=== PATIENT | female | born 1950 | race Caucasian/White ===

== ENCOUNTER 2017-05-18 17:32 | Observation (INO) | payer MEDICARE, OTHER ==
[~2017-05-18 17:32] MED LIST: ISOVUE-370 76%-LOCM 1 ML ONE
[2017-05-18 18:06] LABS: #Eosinphils 0.1 thou/uL (0.0-0.7); #Lymphocytes 2.6 thou/uL (1.20-3.40); #Monocytes 0.3 thou/uL (0.11-0.59); #Neutrophils 2.3 thou/uL (1.40-6.50); %Basophils 0.8 % (0.0-1.0); %Eosinophils 1.7 % (0.0-10.0); %Lymphocytes 48.3 % (21.0-51.0); %Monocytes 6.3 % (0.0-10.0); %Neutrophils 42.9 % (42.0-75.0); Hemoglobin 12.8 g/dL (12.0-16.0); Mean Corpuscular HGB CONC 33.7 g/dL (32.0-36.0); Mean Corpuscular Hemoglobin 30.5 pg (27.0-31.0); Mean Corpuscular Volume 90.5 fl (81.0-99.0); Mean Platelet Volume 7.1 fL (7.4-10.4); Platelet Count 252 thou/uL (130-400); RBC Distribution Width 13.3 % (11.5-14.5); Red Blood Cell (RBC) Count 4.19 mill/uL (4.20-5.40); White Blood Cell (WBC) Count 5.3 thou/uL (4.8-10.8)
[2017-05-18] MEDS ORDERED: Nitroglycerin 2% Ointment 1 INCH/1 GM Packet ONE (18:10)
[2017-05-18 18:26] LABS: ALT (SGPT) 14 U/L (8-55); AST (SGOT) 17 U/L (5-34); Albumin 4.7 g/dL (3.4-4.8); Alkaline Phosphatase 53 U/L (40-150); Anion Gap 15 mmol/L (10-20); BUN (Urea Nitrogen) 13 mg/dL (9.8-20.1); Bilirubin, Total 0.4 mg/dL (0.2-1.2); CK (CPK) 80 U/L (29-168); Calc. Creatinine Clearance 0 mL/min (70-130); Calcium 9.9 mg/dL (7.8-10.44); Carbon Dioxide 26 mmol/L (23-31); Chloride 102 mmol/L (98-107); Estimated GFR-MDRD 77; Globulin 2.9 g/dL (2.4-3.5); Glucose 108 mg/dL (80-115); Potassium 3.5 mmol/L (3.5-5.1); Protein, Total 7.6 g/dL (6.0-8.3); Sodium 139 mmol/L (136-145)
[2017-05-18 18:31] LABS: Troponin I Less than 0.010 ng/mL (< 0.028)
[2017-05-18 18:51] LABS: CKMB 1.1 ng/mL (0-6.6)
--- NOTE | 2017-05-18 19:07 | PDOC.FPRHP ---
- History of Present Illness Chief Complaint: Chest Pain History of Present Illness: 67 year old female with PMH HLD, Type II DM, Asthma, Chronic asthma and history of breast cancer that presents with a 40 minute episode of chest pain which started at approximately 5:30 pm while in the car on the way to dinner. She described the pain as stabbing in nature. It started in right ear, and then she noted it in the substernal region. Soon thereafter the pain radiated to her left jaw. Patient has not experienced symptoms like this previously. She did endorse difficulty with taking a deep breath in secondary to pain. It is worse with coughing. She has a history of chronic COPD and notes that around this time every year she seems to have a worsening cough. Her cough is non- productive. She sees Dr. Trivedi for HLD. She had a stress test done in 2006 which was negative and showed EF of 68%. The pain started to subside as she got to the ED, but completely resided after one inch nitro paste was placed. Patient was given four 81 mg aspirins in the ED. EKG was done which showed non- specific t-wave changes. Patient states that this current episode was different than what she has experienced with bronchitis and GERD in the past. Patient has had "choking" spells over the course of the last several months. She is being worked up by ENT. ED Course: Given aspirin 81 mg and nitro 1 inch paste in the ED. Elevated D-dimer of 0.89 in ED. Sent for CTA chest to rule out PE. - Allergies/Adverse Reactions Allergies Allergy/AdvReac Type Severity Reaction Status Date / Time ether [Ether] Allergy Unknown Verified 12/08/12 12:40 latex Allergy Unknown Verified 12/08/12 12:40 morphine Allergy Unknown Verified 12/08/12 12:40 venom-honey bee Allergy Verified 12/08/12 12:40 [bee venom (honey bee)] - Home Medications Medication Instructions Recorded Confirmed Type Montelukast Sodium [Singulair] 10 mg PO HS 08/14/12 05/18/17 History metFORMIN XR [Glucophage XR] 1,000 mg PO BID-WM 08/14/12 05/18/17 History Budesonide-Formoterol [Symbicort 1 puff INH BID PRN 12/08/12 05/18/17 History 160-4.5] Ciclesonide [Omnaris] 2 spray EA NARE DAILY PRN 12/08/12 05/18/17 History Dexlansoprazole [Dexilant] 60 mg PO TID PRN 12/08/12 05/18/17 History traMADol HCl [Tramadol HCl] 50 mg PO Q4H PRN 12/08/12 05/18/17 History Fluticasone Propionate [Flonase 2 spray EA NARE DAILY 05/18/17 05/18/17 History Nasal [place]] Pioglitazone HCl [Actos] 10 mg PO HS 05/18/17 05/18/17 History - History PMHx: Breast cancer (last chemo 12/18/2006, last radiation 02/2007), Type II DM , Arthritis, HLD, Asthma, Chronic bronchitis, ALISHA on CPAP PSHx: Left breast lumpectomy, cholecystecomy, hysterectomy FHx: Non-contributory Social: Drink socially 2x/month. Denies tobacco or drug use. Specialists: Pulmonology - Dr. Russo, Technology Manager - Dr. Trivedi, ENT - Kianna Calhoun - Vital signs BP: [125/70] HR: [70] RR: [18] Tmax: [98.3] Pox: [98]% on [RA] Wt: [82.40 kg] - Physical Exam Constitutional: NAD, awake, alert and oriented, well developed FMR H&P: Results - Labs Result Diagrams: 05/18/17 17:45 05/18/17 17:45 Lab results: WBC 5.3 thou/uL (4.8-10.8) 05/18/17 17:45 Hgb 12.8 g/dL (12.0-16.0) 05/18/17 17:45 Hct 37.9 % (36.0-47.0) 05/18/17 17:45 MCV 90.5 fl (81.0-99.0) 05/18/17 17:45 Plt Count 252 thou/uL (130-400) 05/18/17 17:45 Neutrophils % 42.9 % (42.0-75.0) 05/18/17 17:45 Sodium 139 mmol/L (136-145) 05/18/17 17:45 Potassium 3.5 mmol/L (3.5-5.1) 05/18/17 17:45 Chloride 102 mmol/L (98-107) 05/18/17 17:45 Carbon Dioxide 26 mmol/L (23-31) 05/18/17 17:45 BUN 13 mg/dL (9.8-20.1) 05/18/17 17:45 Creatinine 0.75 mg/dL (0.6-1.1) 05/18/17 17:45 Glucose 108 mg/dL (80-115) 05/18/17 17:45 Calcium 9.9 mg/dL (7.8-10.44) 05/18/17 17:45 Total Bilirubin 0.4 mg/dL (0.2-1.2) 05/18/17 17:45 AST 17 U/L (5-34) 05/18/17 17:45 ALT 14 U/L (8-55) 05/18/17 17:45 Alkaline Phosphatase 53 U/L (40-150) 05/18/17 17:45 Creatine Kinase 80 U/L (29-168) 05/18/17 17:45 CK-MB (CK-2) 1.1 ng/mL (0-6.6) 05/18/17 17:45 Serum Total Protein 7.6 g/dL (6.0-8.3) 05/18/17 17:45 Albumin 4.7 g/dL (3.4-4.8) 05/18/17 17:45 FMR H&P: Upper Level - Pertinent history HPI: 67 F with PMHx T2DM, HLD, asthma, chronic bronchitis, GERD, arthritis, and breast cancer in remission who presents with acute onset chest pain. She reports that this evening around 530pm they were driving in the car to dinner and she started having stabbing pain in her R ear. She then began to have it in the center of her chest and then L jaw at which point she became concerned and had her drive her to the ER. Upon arrival, she noticed some lightening of the pain and then it completely disappeared with the application of the nitro patch. She is not having any pain at this time. She also has chronic bronchitis and felt short of breath during this episode but it was different from her bronchitis discomfort. - Pertinent findings PE: Gen: awake, alert, oriented x3 HEENT: atraumatic, normocephalic, conjunctiva non-injected PULM: CTAB, breathing unlabored, symmetrical chest expansion CV: RRR, no murmurs noted, pulses 1+ throughout ABD: Soft, mild TTP , no distention, bowel sounds normoactive BACK: No CVAT EXT: No cyanosis or edema NEURO: CN grossly intact, motor strength 5/5 in all extremities, sensation grossly intact SKIN: No rash or lesions Pertinent labs: WBC 5.3, Hgb 12.8, Hct 37.9,Plt 252, D dimer 0.89, Na 139, K 3.5, Cl 102, CO2 26 , BUN 13, Cr 0.75, Glu 108, Trop < 0.01, CKMP 1.1 CXR: Mild cardiomegaly without evidence of cardiac decompensation. Interval removal of the R chest wall port. 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 Atypical chest pain: Asymptomatic at this time. Not associated with exertion and did not have pressure type pain/diaphoresis/radiation down arm. Non- reproducible with palpation. Relieved with nitro. Will check FLP, TSH, Mg, Phos and trend troponins. Will plan for cardiolite stress test in AM as HEART score is 5. Nitro patch in place. Will repeat EKG if chest pain recurs. DDX includes ischemic chest pain, MSK pain, gastritis, PUD, esophageal spasm, laryngeal spasm. NPO at [place] for stress 2. T2DM: Home metformin and actos. ACHS accuchecks. Mild SSI. Will check a1c 3. HLD: FLP in a.m. 4. GERD/Hiatal hernia: May be contributing to chest pain. Continue home dexilant 5. Chronic bronchitis/Asthma: Home singulair and PRN albuterol PPX: SCDs, ambulatory, home dexilant Dispo: Tele obs for likely less than 2 midnights I, Ninoska Hale, have evaluated this patient and agree with findings/plan as outlined by internet cafe manager resident. Pertinent changes/additions are listed here.
--- NOTE | 2017-05-18 20:07 | RAD ---
AP VIEW OF THE CHEST: 05/18/17 INDICATION: Chest pain. COMPARISON: Prior examination dated 10/31/06. FINDINGS: There is mild cardiomegaly which has developed since the prior exam. Right sided chest wall port is n o longer in place. The lungs are clear. No pleural effusion is evident. Pulmonary vasculature is with in normal limits. IMPRESSION: 1. Mild cardiomegaly without evidence of cardiac decompensation. 2. Interval removal of the right chest wall port. POS: [facility]
--- NOTE | 2017-05-18 20:49 | CT ---
CTA OF THE THORAX UTILIZING IV CONTRAST AND 3D REFORMATTED IMAGING 05/18/17 INDICATION: Sudden onset of chest pain with referral into the left jaw. COMPARISON: CT of the thorax dated 10/21/12. FINDINGS: No central or segmental pulmonary embolus is present. There are patchy ground glass opacities within the posterior right lower lobe. One is slightly nodular in appearance on image 66 of series three kaylyn suring 6 mm . No pathologically enlarged lymph nodes are evident. Gallbladder is surgically absent. T here is mild thoracolumbar scoliosis. IMPRESSION: 1. No central or segmental pulmonary embolus. 2. Patchy nodular ground glass opacities in the right lower lobe may reflect changes of a bronch iolitis. Recommend correlation with the clinical exam and CT followup in 6 to 8 weeks to document res olution. POS: [facility]
--- NOTE | 2017-05-18 21:06 | PDOC.EVN ---
Attending Addendum - Attending Addendum Date/Time: 05/18/172057 I personally evaluated the patient and discussed the management with Dr. Boone/Geoffrey. I agree with the History, Examination, Assessment and Plan documented above with any addition or exceptions noted below. Patient with history of breast cancer, T2DM, HLD presenting with acute onset of stabbing type chest pain from R side radiating to substernal and L jaw. It improved spontaneously, and completely resolved after nitro admin in ER. Her exam is overall benign. Labs ok, and trops normal. She will be admitted to obs for enzyme and EKG rule out. Initial EKG normal. Stress test in AM and hopeful discharge with outpatient follow up if normal.
[2017-05-18 21:15] LABS: Hemoglobin A1c 6.2 % (4.0-6.0)
[2017-05-18 21:17] LABS: Magnesium 1.7 mg/dL (1.6-2.6); Phosphorus 3.4 mg/dL (2.3-4.7)
[2017-05-18 21:30] LABS: Troponin I Less than 0.010 ng/mL (< 0.028)
[2017-05-18 21:57] VITALS: BMI 33.3
[2017-05-18] MEDS ORDERED: Mometasone/Formoterol 120 PUFF INHALER INH PRN (22:17)
[2017-05-18] MEDS ORDERED: Dextrose 50% Abboject 50 ML SYRINGE SLOW IVP PRN (23:25)
[2017-05-18] MEDS ORDERED: Dextrose 5% in Water 1,000 ML IV PRN (23:25)
[2017-05-18] MEDS ORDERED: HumaLOG 300 UNITS/3 ML VIAL SC PRN (23:25)
[2017-05-19 00:26] LABS: Troponin I Less than 0.010 ng/mL (< 0.028)
[2017-05-19] MEDS: Acetaminophen 325 MG TAB PO PRN ×2 (01:16→08:29)
[2017-05-19 05:35] LABS: Cardiac Risk 3.2 (Less than 4.5)
--- NOTE | 2017-05-19 06:54 | PDOC.FM ---
- Subjective Subjective: Pt denied chest pain this am. Endorses a pertinent family hx of mom and dad both having chf also dad had multiple stents placed. She also endorses having chronic bronchitis. 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 - Objective MAR Reviewed: Yes Vital Signs & Weight: Vital Signs (12 hours) Temp Pulse Resp BP BP Pulse Ox 05/19/17 04:29 98.4 F 70 16 112/54 L 97 05/18/17 20:30 98.4 F 74 18 125/60 99 Weight Weight 82.735 kg I&O: 05/17/17 05/18/17 05/19/17 06:59 06:59 06:59 Intake Total 480 Output Total 850 Balance -370 Result Diagrams: 05/18/17 17:45 05/18/17 17:45 <Marcia King - Last Filed: 05/19/17 10:28> - Objective Vital Signs & Weight: Vital Signs (12 hours) Temp Pulse Resp BP BP Pulse Ox 05/19/17 08:11 98.4 F 79 16 117/58 L 99 05/19/17 08:00 98.4 F 79 16 05/19/17 04:29 98.4 F 70 16 112/54 L 97 Weight Weight 82.735 kg I&O: 05/18/17 05/19/17 05/20/17 06:59 06:59 06:59 Intake Total 480 Output Total 850 Balance -370 Result Diagrams: 05/18/17 17:45 05/18/17 17:45 <Jean Mittal - Last Filed: 05/19/17 11:17> Phys Exam - Physical Examination Constitutional: NAD HEENT: PERRLA, moist MMs, sclera anicteric Neck: no nodes, no JVD Respiratory: no wheezing, no rales, no rhonchi Cardiovascular: RRR, no significant murmur Gastrointestinal: soft, non-tender, no distention Musculoskeletal: no edema, pulses present Neurological: non-focal, normal sensation Psychiatric: normal affect, A&O x 3 Skin: no rash, normal turgor <Marcia King - Last Filed: 05/19/17 10:28> Dx/Plan (1) Atypical chest pain Code(s): R07.89 - OTHER CHEST PAIN Status: Acute (2) GERD (gastroesophageal reflux disease) Code(s): K21.9 - GASTRO-ESOPHAGEAL REFLUX DISEASE WITHOUT ESOPHAGITIS Status: Acute (3) HLD (hyperlipidemia) Code(s): E78.5 - HYPERLIPIDEMIA, UNSPECIFIED Status: Acute (4) Asthma Code(s): J45.909 - UNSPECIFIED ASTHMA, UNCOMPLICATED Status: Acute (5) Chronic bronchitis Code(s): J42 - UNSPECIFIED CHRONIC BRONCHITIS Status: Acute (6) Type 2 diabetes mellitus Status: Acute (7) ALISHA (obstructive sleep apnea) Code(s): G47.33 - OBSTRUCTIVE SLEEP APNEA (ADULT) (PEDIATRIC) Status: Acute (8) Family history of coronary artery disease Code(s): Z82.49 - FAMILY HX OF ISCHEM HEART DIS AND OTH DIS OF THE CIRC SYS Status: Acute (9) Family history of CHF (congestive heart failure) Code(s): Z82.49 - FAMILY HX OF ISCHEM HEART DIS AND OTH DIS OF THE CIRC SYS Status: Acute (10) Hx of breast cancer Code(s): Z85.3 - PERSONAL HISTORY OF MALIGNANT NEOPLASM OF BREAST Status: Acute - Plan Plan: A/P: 67 yo CF with PMHx T2DM, HLD presents with chest pain, admitted for atypical chest pain. 1. Atypical chest pain: -DDX includes ischemic chest pain, MSK pain, gastritis, PUD, esophageal spasm, and laryngeal spasm. -40 minute episode of chest pain, stabbing in nature, right ear, substernal and left jaw pain. Non-reproducible with palpation. -FLP, TSH, Mg, Phos and HgA1c pending. -Trend troponins. Will plan for cardiolite stress test. Nitro patch in place. Will repeat EKG if chest pain recurs. . -Consider GI cocktail if pain recurs. 2. T2DM: Home metformin and Actos. ACHS accuchecks. Mild SSI. hba1c 3. HLD: 5% ascvd risk based on lipid panel. We will start a moderate intensity statin ( atorvastatin 20mg daily). 4. GERD/Hiatal hernia: May be contributing to chest pain. Continue home dexilant. Consider GI cocktail if pain recurs. 5. Chronic bronchitis/Asthma: Home singulair and symbicort. PRN Duonebs PPX: SCDs, ambulatory, home dexilant Dispo: Tele obs; okay to dc if stress test normal. <Marcia King - Last Filed: 05/19/17 10:28> Attending Addendum - Attending Addendum Date/Time: 05/19/17 [id number] I personally evaluated the patient and discussed the management with Dr. Elissa Collado. I agree with the History, Examination, Assessment and Plan documented above with any addition or exceptions noted below. Patient has had no recurrence of chest pain. She will have nuclear stress testing this morning and will be discharged home later today if normal. Labs show well controlled DM and LDL near goal. <Jean Mittal - Last Filed: 05/19/17 11:17>
[2017-05-19] MEDS ORDERED: metFORMIN XR 500 MG TAB PO SCH (08:00)
[2017-05-19] MEDS ORDERED: Fluticasone Propionate Nasal Spray 16 gm Bottle NASAL SCH (09:00)
[2017-05-19] MEDS ORDERED: Fluticasone Propionate Nasal Spray 16 gm Bottle NASAL PRN (09:00)
[2017-05-19] MEDS ORDERED: Regadenoson 0.4 MG/5 ML SYRINGE ONE (10:33)
[2017-05-19 12:22] VITALS: BP 134/60; TEMP 98.6
--- NOTE | 2017-05-19 13:09 | NM ---
NUCLEAR MEDICINE CARDIAC MYOCARDIAL PERFUSION SPECT EJECTION FRACTION STUDY WALL MOTION CINE: DATE: 05/19/17. HISTORY: A 67-year-old female with diabetes mellitus and dyslipidemia who presents with acute chest pain. TECHNIQUE: Number of days: one. Rest study: Tc99m sestamibi (Cardiolite) dose: 11.0 mCi. Pharmacologic stress: Lexiscan dose: 0.4 mg. Stress study: Tc99m sestamibi (Cardiolite) dose: 30.0 mCi. FINDINGS: CARDIAC (MYOCARDIAL PERFUSION) SPECT Distribution of sestamibi is homogeneous throughout the left ventricle, with no fixed or reversible m yocardial perfusion defects. EJECTION FRACTION STUDY EF = 60% WALL MOTION CINE The left ventricular wall motion is normal. There is normal systolic wall thickening. IMPRESSION: Normal. florentin[] POS: [facility]
[2017-05-19] MEDS ORDERED: Atorvastatin Calcium 10 MG TAB PO SCH (21:00)
[2017-05-19] MEDS ORDERED: Montelukast Sodium 10 mg Tablet PO SCH (21:00)
[2017-05-19] MEDS ORDERED: Pioglitazone HCl 15 MG TAB PO SCH (21:00)
--- NOTE | 2017-05-23 15:02 | EKG ---
Test Reason : Blood Pressure : / mmHG Vent. Rate : 072 BPM Atrial Rate : 072 BPM P-R Int : 138 ms QRS Dur : 108 ms QT Int : 420 ms P-R-T Axes : 046 -05 002 degrees QTc Int : 459 ms Normal sinus rhythm Incomplete right bundle branch block Voltage criteria for left ventricular hypertrophy T wave abnormality, consider anterior ischemia Abnormal ECG Confirmed by JORGE L XIAO ([id number]), school photograph editor DICK MOORE ([id number]) on 05/23/2017 3:00:27 PM Referred By: Confirmed By:JORGE L XIAO
== END 2017-05-19 14:00 | disposition home or self-care (01) ==
LOC: ERS 17:32 → 2SW 18:50
PROVIDERS: ADMIT Student in an Organized Health Care Education/Training Program; ATTEND Student in an Organized Health Care Education/Training Program
DX: R07.89 Other chest pain (principal); E78.5 Hyperlipidemia, unspecified; K21.9 Gastro-esophageal reflux disease without esophagitis; K44.9 Diaphragmatic hernia without obstruction or gangrene; J44.9 Chronic obstructive pulmonary disease, unspecified; G47.33 Obstructive sleep apnea (adult) (pediatric); M19.90 Unspecified osteoarthritis, unspecified site; E11.9 Type 2 diabetes mellitus without complications; Z88.5 Allergy status to narcotic agent; Z91.048 Other nonmedicinal substance allergy status; Z91.030 Bee allergy status; Z91.040 Latex allergy status; Z79.51 Long term (current) use of inhaled steroids; Z79.84 Long term (current) use of oral hypoglycemic drugs; Z79.899 Other long term (current) drug therapy; Z85.3 Personal history of malignant neoplasm of breast
CPT/HCPCS: 71045; 71275; 78452; 80061; 82550; 82553; 82962 ×2; 83036; 83735; 84100; 84484 ×2; 85379; 93005; 93017; 94760; 99285; A9500; G0378; 36415; 36416; 80053; 84443; 85025; J2785

== ENCOUNTER 2017-12-02 12:42 | Outpatient (CLI) | payer MEDICARE, OTHER ==
--- NOTE | 2017-12-02 13:57 | RAD ---
PA AND LATERAL CHEST: History: Dyspnea. Comparison: 05-24-14 FINDINGS: Heart size is within normal limits. There is some atherosclerotic changes of the aorta. The lungs are clear of infiltrate. Bones appear slightly demineralized. IMPRESSION: No active intrathoracic disease. Stable chest. POS: [facility]
== END 2017-12-02 12:43 | disposition home or self-care (01) ==
LOC: RAD 12:42
PROVIDERS: ATTEND Internal Medicine Pulmonary Disease
DX: R06.00 Dyspnea, unspecified (principal)
CPT/HCPCS: 71046

== ENCOUNTER 2017-12-31 11:17 | Outpatient (CLI) | payer MEDICARE, OTHER | END 2017-12-31 11:18 | disposition home or self-care (01) | LOC: BICMAMMO 11:17 | PROVIDERS: ATTEND Family Medicine | DX: Z12.31 Encounter for screening mammogram for malignant neoplasm of breast (principal); Z80.3 Family history of malignant neoplasm of breast; Z85.3 Personal history of malignant neoplasm of breast | CPT/HCPCS: 77063; 77067 ==

== ENCOUNTER 2018-01-01 08:27 | Outpatient (CLI) | payer MEDICARE, OTHER ==
[2018-01-01 09:07] LABS: Bilirubin Negative (Negative); Blood, Urine Small (Negative); Glucose, Urine (Dipstick) Negative (Negative); Leukocyte Trace (Negative); Nitrite Negative (Negative); Protein, Urine (Dipstick) Negative (Neg-Trace); Urobilinogen 0.2 mg/dL (0.2-1.0)
[2018-01-01 09:09] LABS: Clarity Slightly Cloudy (Clear)
[2018-01-01 09:21] LABS: Bacteria/HPF 1+ HPF (None Seen); Hyaline Casts/LPF NONE SEEN LPF (0-3 Hyaline); RBC/HPF 0-3 HPF (0-3); Squamous Epithelial 0-3 HPF (0-3); WBC/HPF 0-3 HPF (0-3)
--- NOTE | 2018-01-01 10:11 | ULT ---
RENAL ULTRASOUND: Date: 01-01-18 Comparison: None. History: History of kidney stones. Technique: Multiplanar grayscale sonographic imaging of the kidneys and urinary bladder obtained. FINDINGS: The right kidney measures 10.5 x 4.5 x 4.8 cm and left kidney measures 10.1 x 5.3 x 4.8 cm. There is no renal mass lesion, hydronephrosis, or discrete renal stones seen. There is a probable small cyst a ssociated with the upper pole of the right kidney measuring 1.3 x 1.0 x 0.9 cm. Urinary bladder is gr ossly unremarkable, partially decompressed. There is a probable small cyst associated with the mid/lo wer pole left kidney measuring 1.1 x 1.0 x 0.9 cm. No solid renal mass, stone or hydronephrosis seen on the left. IMPRESSION: No acute findings are seen. No discrete renal stone noted. Radiographs or CT would be a more sensitiv e examination for renal stone disease if clinically warranted. POS: [facility]
== END 2018-01-01 08:28 | disposition home or self-care (01) ==
LOC: SCSULT 08:27
PROVIDERS: ATTEND Urology
DX: N39.41 Urge incontinence (principal); Q61.02 Congenital multiple renal cysts; Z87.442 Personal history of urinary calculi
CPT/HCPCS: 76770; 81001; 87086

== ENCOUNTER 2019-01-01 13:11 | Outpatient (CLI) | payer MEDICARE, OTHER ==
--- NOTE | 2019-01-01 13:54 | MMO ---
Bilateral MAMMO Bilat Screen [facility]. CLINICAL HISTORY: Patient is 68 years old and is seen for screening. The patient has the following family history of breast cancer: mother and 2 maternal aunts. The patient has a history of malignant (generic) in the left breast at age 56. The patient has a history of left Lumpectomy in 2007 - malignant and left Ultrasound Guided Core Biopsy in 2007 - malignant. VIEWS: The views performed were: bilateral craniocaudal with tomosynthesis; bilateral mediolateral oblique with tomosynthesis; and left exaggerated craniocaudal. FILMS COMPARED: The present examination has been compared to prior imaging studies performed at [facility] on 10/07/2014, 12/28/2015, 12/28/2016 and 12/31/2017. This study has been interpreted with the assistance of computer-aided detection. MAMMOGRAM FINDINGS: The breasts are heterogeneously dense, which could obscure a lesion on mammography. Finding 1: There is a stable post-surgical scar seen in the left breast. Finding 2: There are stable benign appearing calcifications seen in both breasts. There are no suspicious masses, suspicious calcifications, or new areas of architectural distortion. IMPRESSION: THERE IS NO MAMMOGRAPHIC EVIDENCE OF MALIGNANCY. A ROUTINE FOLLOW-UP MAMMOGRAM IN 1 YEAR IS RECOMMENDED. THE RESULTS OF THIS EXAM WERE SENT TO THE PATIENT. ACR BI-RADS Category 2 - Benign finding MAMMOGRAPHY NOTE: 1. A negative mammogram report should not delay a biopsy if a dominant of clinically suspicious mass is present. 2. Approximately 10% to 15% of breast cancers are not detected by mammography. 3. Adenosis and dense breasts may obscure an underlying neoplasm. Reported by: JEAN ESCOTO MD Electonically Signed: [id number]
== END 2019-01-01 13:12 | disposition home or self-care (01) ==
LOC: BICMAMMO 13:11
PROVIDERS: ATTEND Family Medicine
DX: Z12.31 Encounter for screening mammogram for malignant neoplasm of breast (principal)
CPT/HCPCS: 77063; 77067

== ENCOUNTER 2019-01-21 14:33 | Outpatient (CLI) | payer MEDICARE, OTHER ==
--- NOTE | 2019-01-21 17:02 | RAD ---
2 VIEW CHEST: Date: 01/21/19 HISTORY: Lungs are clear. Heart and mediastinum appear normal. Osseous structures unremarkable. IMPRESSION: No acute findings. POS: [facility]
== END 2019-01-21 14:34 | disposition home or self-care (01) ==
LOC: RAD 14:33
PROVIDERS: ATTEND Internal Medicine Pulmonary Disease
DX: R06.00 Dyspnea, unspecified (principal)
CPT/HCPCS: 71046

== ENCOUNTER 2019-07-01 08:24 | Outpatient (CLI) | payer MEDICARE, OTHER ==
--- NOTE | 2019-07-01 09:24 | RAD ---
KUB: History: Follow up to kidney stones. FINDINGS: The bowel gas pattern is nonobstructed. No definitive renal calculi are seen. No ureteral calculi. Po st op cholecystectomy changes are noted. The bones are demineralized. IMPRESSION: No renal calculi identified. POS: [facility]
--- NOTE | 2019-07-01 09:54 | ULT ---
EXAM: US Renal Bilateral STANDARD PROVIDED CLINICAL HISTORY: Renal cysts COMPARISON: 01/01/2018 FINDINGS: Right kidney measures approximately 10.4 x 4.8 x 4.7 cm and demonstrates no evidence for hydronephros is, sonographically apparent calculus or solid mass. Stable 1.1 cm hypodensity superior pole, likely a cyst. Left kidney measures approximately 11.3 x 4.5 x 5.1 cm and demonstrates no evidence for hydronephrosi s. 1.1 cm echogenic focus involving the inferior aspect of the left kidney may reflect calculus. Stable hypoechoic focus likely cyst involving midportion left kidney. Urinary bladder appears sonographically unremarkable. IMPRESSION: No evidence for hydronephrosis.
[2019-07-01 10:59] LABS: Bacteria/HPF None Seen HPF (None Seen); Bilirubin Negative (Negative); Blood, Urine Negative (Negative); Clarity Clear (Clear); Glucose, Urine (Dipstick) Normal (Negative); Leukocyte 25 Leu/uL (Negative); Nitrite Negative (Negative); Protein, Urine (Dipstick) Negative (Neg-Trace); RBC/HPF 0-3 HPF (0-3); Squamous Epithelial 0-3 HPF (0-3); Urobilinogen Normal mg/dL (Less than 2); WBC/HPF 0-3 HPF (0-3)
[2019-07-01 11:02] LABS: Urine Culture Reflex No No
== END 2019-07-01 08:25 | disposition home or self-care (01) ==
LOC: SCSRAD 08:24
PROVIDERS: ATTEND Urology
DX: N39.46 Mixed incontinence (principal); R31.29 Other microscopic hematuria; Q61.02 Congenital multiple renal cysts; Z87.442 Personal history of urinary calculi
CPT/HCPCS: 74018; 76770; 81001

== ENCOUNTER 2019-07-24 13:28 | Outpatient (CLI) | payer MEDICARE, OTHER ==
--- NOTE | 2019-07-24 17:20 | CT ---
CT ABDOMEN NONCONTRAST CT PELVIS NONCONTRAST: (Urolithiasis protocol) DATE: 07/24/2019 HISTORY: 69-year-old female with flank pain COMPARISON: 07/06/2016 TECHNIQUE: IV injection of iodinated contrast media: None Oral contrast media: None FINDINGS: Other than for urolithiasis, the lack of IV and oral contrast limits the evaluation. Liver: No contour abnormalities. Spleen: No splenomegaly. Pancreas: No contour abnormalities. Adrenals: No mass. Kidneys: No nephrolithiasis or overt hydronephrosis. Tiny hypodensity at medial left lower pole isma x, unchanged, probably cysts. Ureters: No calculi. Bladder: No calculi. Inferior funneling of bladder base through the TURP defect. Normal, thin valverde. Abdominal aorta: No aneurysm. Small bowel: No dilation. Colon: No adjacent fat stranding. Appendix: No dilation or adjacent fat stranding. Free air: None Free fluid: None Lumbar spine: Vertebral body heights are maintained. Transitional level at lumbosacral junction. Dege nerative disc changes at L5-6. Gallbladder: Surgical clips at gallbladder fossa. IMPRESSION: 1. No acute findings. 2. No urolithiasis or obstructive uropathy. 3. Status post transurethral resection of prostate. 4. Status post cholecystectomy. 5. Degenerative disc disease just superior to lower lumbar transitional level
== END 2019-07-24 13:29 | disposition home or self-care (01) ==
LOC: SCSCT 13:28
PROVIDERS: ATTEND Urology
DX: Q61.02 Congenital multiple renal cysts (principal); N20.0 Calculus of kidney; M51.36 Other intervertebral disc degeneration, lumbar region; Z90.49 Acquired absence of other specified parts of digestive tract
CPT/HCPCS: 74176

== ENCOUNTER 2020-01-06 15:47 | Outpatient (CLI) | payer MEDICARE, OTHER ==
--- NOTE | 2020-01-06 16:13 | MMO ---
Bilateral MAMMO Bilat Screen [facility]. CLINICAL HISTORY: Patient is 69 years old and is seen for screening. The patient has the following family history of breast cancer: mother and 2 maternal aunts. The patient has a history of malignant (generic) in the left breast at age 56. The patient has a history of left Lumpectomy in 2007 - malignant and left Ultrasound Guided Core Biopsy in 2007 - malignant. VIEWS: The views performed were: bilateral craniocaudal with tomosynthesis and bilateral mediolateral oblique with tomosynthesis. FILMS COMPARED: The present examination has been compared to prior imaging studies performed at [facility] on 12/28/2015, 12/28/2016, 12/31/2017 and 01/01/2019. This study has been interpreted with the assistance of computer-aided detection. MAMMOGRAM FINDINGS: There are scattered fibroglandular densities. Finding 1: There is an area of architectural distortion with associated post-surgical scar seen in the left breast. Finding 2: There are stable benign appearing calcifications seen in both breasts. There are also vascular calcifications. There are no suspicious masses, suspicious calcifications, or new areas of architectural distortion. IMPRESSION: THERE IS NO MAMMOGRAPHIC EVIDENCE OF MALIGNANCY. A ROUTINE FOLLOW-UP MAMMOGRAM IN 1 YEAR IS RECOMMENDED. THE RESULTS OF THIS EXAM WERE SENT TO THE PATIENT. ACR BI-RADS Category 2 - Benign finding MAMMOGRAPHY NOTE: 1. A negative mammogram report should not delay a biopsy if a dominant of clinically suspicious mass is present. 2. Approximately 10% to 15% of breast cancers are not detected by mammography. 3. Adenosis and dense breasts may obscure an underlying neoplasm. Reported by: HORTENCIA ALFORD MD Electonically Signed: [id number]
== END 2020-01-06 15:48 | disposition home or self-care (01) ==
LOC: BICMAMMO 15:47
PROVIDERS: ATTEND Internal Medicine
DX: Z12.31 Encounter for screening mammogram for malignant neoplasm of breast (principal); Z80.3 Family history of malignant neoplasm of breast; Z85.3 Personal history of malignant neoplasm of breast; Z98.890 Other specified postprocedural states
CPT/HCPCS: 77063; 77067

== ENCOUNTER 2021-01-09 13:35 | Outpatient (CLI) | payer MEDICARE, OTHER | END 2021-01-09 13:36 | disposition home or self-care (01) | LOC: BICMAMMO 13:35 | PROVIDERS: ATTEND Internal Medicine | DX: Z12.31 Encounter for screening mammogram for malignant neoplasm of breast (principal); Z80.3 Family history of malignant neoplasm of breast; Z85.3 Personal history of malignant neoplasm of breast; Z98.890 Other specified postprocedural states | CPT/HCPCS: 77063; 77067 ==

== ENCOUNTER 2022-02-21 11:33 | Outpatient (CLI) | payer MEDICARE, OTHER | END 2022-02-21 11:34 | disposition home or self-care (01) | LOC: BICMAMMO 11:33 | PROVIDERS: ATTEND Internal Medicine | DX: Z12.31 Encounter for screening mammogram for malignant neoplasm of breast (principal); Z80.3 Family history of malignant neoplasm of breast; Z85.3 Personal history of malignant neoplasm of breast; Z98.890 Other specified postprocedural states | CPT/HCPCS: 77063; 77067 ==

== ENCOUNTER 2022-08-06 11:58 | Outpatient (CLI) | payer MEDICARE, OTHER | END 2022-08-06 11:59 | disposition home or self-care (01) | LOC: SCSMRI 11:58 | PROVIDERS: ATTEND Neurological Surgery | DX: M47.22 Other spondylosis with radiculopathy, cervical region (principal); M47.26 Other spondylosis with radiculopathy, lumbar region; M47.813 Spondylosis without myelopathy or radiculopathy, cervicothoracic region; G95.89 Other specified diseases of spinal cord | CPT/HCPCS: 72141; 72148 ==

== ENCOUNTER 2023-03-04 07:30 | Day surgery (SDC) | payer MEDICARE, OTHER ==
[2023-02-28 08:56] VITALS: BMI 26.6
[2023-03-04] MEDS ORDERED: Scopolamine 1 mg/72 hour Patch ONE (08:18)
[2023-03-04] MEDS ORDERED: Famotidine/PF 20 mg/2ml Vial ONE (08:19)
[2023-03-04] MEDS ORDERED: Acetaminophen 500 MG TAB ONE (08:19)
[2023-03-04] MEDS ORDERED: PROPOFOL 20 ML ONE (09:07)
[2023-03-04] MEDS ORDERED: Lidocaine 1% PF 5 ML VIAL ONE (09:08)
[2023-03-04] MEDS ORDERED: Rocuronium Bromide 10 MG/ML (10ML VIAL) ONE (09:08)
[2023-03-04] MEDS ORDERED: SUGAMMADEX SODIUM 200 MG/2 ML VIAL ONE ×3 (09:18→11:57)
[2023-03-04] MEDS ORDERED: Ondansetron PF 4 MG/2 ML Vial ONE ×2 (09:21→10:59)
[2023-03-04] MEDS ORDERED: Thrombin 5000 UNITS/5 ML VIAL ONE (09:28)
[2023-03-04] MEDS ORDERED: Dexmedetomidine 200 MCG/2 ML VIAL ONE (09:34)
[2023-03-04] MEDS ORDERED: fentaNYL 50 mcg/mL 1 mL Vial ONE ×5 (09:43→12:37)
[2023-03-04] MEDS ORDERED: CEFAZOLIN 2 GM VIAL ONE ×2 (10:19→14:14)
[2023-03-04] MEDS ORDERED: Sodium Chloride 0.9% 100 ML ONE ×2 (10:19→14:14)
[2023-03-04] MEDS ORDERED: Lidocaine 2% 6 ML (Jelly) SYR ONE (10:34)
[2023-03-04] MEDS ORDERED: Dexamethasone 20 MG/5 ML VIAL ONE (10:59)
[2023-03-04] MEDS ORDERED: Tamsulosin HCl 0.4 MG CAP ONE (12:22)
[2023-03-04] MEDS ORDERED: HYDROcodone/Acetaminophen 5/325 mg Tablet ONE (13:16)
== END 2023-03-04 15:02 | disposition home or self-care (01) ==
LOC: SDC 07:30
PROVIDERS: ATTEND Neurological Surgery
PROC: 0RG10K1 Fusion of Cervical Vertebral Joint with Nonautologous Tissue Substitute, Posterior Approach, Posterior Column, Open Approach (ICD-10-PCS; principal; 2023-03-04)
DX: M54.12 Radiculopathy, cervical region (principal); N30.20 Other chronic cystitis without hematuria; E11.9 Type 2 diabetes mellitus without complications; K57.30 Diverticulosis of large intestine without perforation or abscess without bleeding; M81.0 Age-related osteoporosis without current pathological fracture; G89.4 Chronic pain syndrome; Z85.3 Personal history of malignant neoplasm of breast; Z90.710 Acquired absence of both cervix and uterus; Z90.89 Acquired absence of other organs; Z98.890 Other specified postprocedural states; Z88.8 Allergy status to other drugs, medicaments and biological substances; Z91.040 Latex allergy status; Z88.2 Allergy status to sulfonamides; Z88.5 Allergy status to narcotic agent; Z79.84 Long term (current) use of oral hypoglycemic drugs; Z79.899 Other long term (current) drug therapy
CPT/HCPCS: 20930; 20936; 22551; 22552; 22845; 22853 ×2; J3010; C1713; C1889; J1100; J2405; J2704; J3490; S0028

== ENCOUNTER 2023-12-05 11:15 | Outpatient (CLI) | payer OTHER | END 2023-12-05 11:16 | disposition home or self-care (01) | LOC: SCSMRI 11:15 | PROVIDERS: ATTEND Neurological Surgery | DX: M54.50 Low back pain, unspecified (principal); M47.816 Spondylosis without myelopathy or radiculopathy, lumbar region; M43.16 Spondylolisthesis, lumbar region; M48.061 Spinal stenosis, lumbar region without neurogenic claudication; R93.7 Abnormal findings on diagnostic imaging of other parts of musculoskeletal system | CPT/HCPCS: 72148 ==

== ENCOUNTER 2023-12-06 14:47 | Outpatient (CLI) | payer OTHER | END 2023-12-06 14:48 | disposition home or self-care (01) | LOC: ULT 14:47 | PROVIDERS: ATTEND Urology | DX: N39.0 Urinary tract infection, site not specified (principal); N39.46 Mixed incontinence; N28.1 Cyst of kidney, acquired | CPT/HCPCS: 76770 ==

== ENCOUNTER 2024-02-03 12:57 | Outpatient (CLI) | payer MEDICARE, OTHER | END 2024-02-03 12:58 | disposition home or self-care (01) | LOC: RAD 12:57 | PROVIDERS: ATTEND Internal Medicine Critical Care Medicine | DX: R06.00 Dyspnea, unspecified (principal) | CPT/HCPCS: 71046 ==